=== PATIENT | male | born 1945 | race Caucasian/White ===

== ENCOUNTER 2022-10-24 07:59 | Day surgery (SDC) | payer MEDICARE, OTHER ==
[2022-10-24] VITALS (9 sets, daily range): BP systolic 107–147; BP diastolic 49–78
[~2022-10-24] VITALS: Ht 177.8 cm; Wt 83.8 kg
[~2022-10-24 07:59] MED LIST: ASPI-1265 PO; OMEG300C2 PO
[2022-10-24] MEDS ORDERED: diphenhydrAMINE 25mg capsule PO PRN (08:25)
[2022-10-24] MEDS ORDERED: normal saline 1,000 ML IV SCH (08:25)
[2022-10-24] MEDS ORDERED: SIMV-341 PO (08:27)
[2022-10-24] MEDS ORDERED: UBID30CA11 PO (08:27)
[2022-10-24 09:00] LABS: BASOPHILS % (AUTO) 0.5 % (0-1); EOSINOPHILS # (AUTO) 0.1 X10'3 (0-0.9); EOSINOPHILS % (AUTO) 3.3 % (0-6); HEMATOCRIT 40.3 % (42.0-52.0); HEMOGLOBIN 13.4 g/dl (14.0-17.9); LYMPHOCYTES # (AUTO) 0.8 X10'3 (1.1-4.8); LYMPHOCYTES % (AUTO) 23.3 % (21-51); MEAN CORPUSCULAR HEMOGLOBIN 29.2 PG (27.0-31.0); MEAN CORPUSCULAR HGB CONC 33.3 g/dL (33.0-36.5); MEAN CORPUSCULAR VOLUME 87.7 FL (78-98); MEAN PLATELET VOLUME 7.9 FL (7.4-10.4); MONOCYTES # (AUTO) 0.4 X10'3 (0-0.9); MONOCYTES % (AUTO) 10.5 % (2-12); NEUTROPHILS # (AUTO) 2.3 X10'3 (1.8-7.7); NEUTROPHILS % (AUTO) 62.4 % (42-75); PLATELET COUNT 197 X10'3 (140-440); RED BLOOD COUNT 4.59 X10'6 (4.70-6.10); RED CELL DISTRIBUTION WIDTH 13.7 % (11.5-14.5); WHITE BLOOD COUNT 3.6 X10'3 (4.5-11.0)
[2022-10-24 09:05] LABS: ALBUMIN 3.8 G/DL (3.4-5.0); ANION GAP 6 (8-16); BLOOD UREA NITROGEN 16 MG/DL (7-18); BUN/CREATININE RATIO 18.6 (5.4-32.0); CALCIUM 9.2 MG/DL (8.5-10.1); CHLORIDE 108 MMOL/L (99-107); CREATININE 0.86 MG/DL (0.60-1.10); GLUCOSE 96 MG/DL (70-104); SODIUM 141 MMOL/L (135-145); eGFR 86 ML/MIN
[2022-10-24] MEDS ORDERED: nitroGLYCERIN-Tridil 50MG/D5W 250 ML IV ONE (11:04)
[2022-10-24] MEDS ORDERED: fentaNYL/PF 50MCG/1 ML 2ML syringe ONE (11:04)
[2022-10-24] MEDS ORDERED: verapamil 2.5 mg/ml inj IV ONE (11:04)
[2022-10-24] MEDS ORDERED: LIDOcaine 1% (10mg/ml) 2ml vial ONE (11:05)
[2022-10-24] MEDS ORDERED: iohexol 350MG/ML 100ml bottle IV ONE (11:05)
[2022-10-24] MEDS ORDERED: heparin 1,000unit/ml 10ml vial 10 ML ONE (11:05)
[2022-10-24] MEDS ORDERED: midazolam 1 mg/ML 2ml injection ONE ×2 (11:05→11:30)
[2022-10-24] MEDS ORDERED: iohexol 350 MG/ML 50ML vial IV ONE (11:05)
[2022-10-24] MEDS ORDERED: HYDROcodone/acetaminophen 10/325mg tab PO PRN (15:05)
[2022-10-24] MEDS ORDERED: acetaminophen 325mg tablet PO PRN (15:05)
[2022-10-24] MEDS ORDERED: proCHLORperazine 10 MG/2 ml inj IV PRN (15:05)
[2022-10-24] MEDS ORDERED: ondansetron/PF 4mg/2ml inj IV PRN (15:05)
[2022-10-24] MEDS ORDERED: HYDROcodone/acetaminophen 5mg/325mg tablet PO PRN (15:05)
== END 2022-10-24 15:20 | disposition home or self-care (01) ==
LOC: SSTAY O 07:59
PROVIDERS: ATTEND Internal Medicine Cardiovascular Disease
DX: R94.39 Abnormal result of other cardiovascular function study (principal); I25.10 Atherosclerotic heart disease of native coronary artery without angina pectoris; E78.5 Hyperlipidemia, unspecified; Z79.899 Other long term (current) drug therapy
CPT/HCPCS: 36415; 80048; 83735; 85025; 85610; 93458; 99152; C1769; C1894; J1644; J2250; J3010; J3490; J7030; Q0163; Q9967; 99153; A6258; A6402